=== PATIENT | female | born 1990 | race African-American/Black ===

== ENCOUNTER 2020-02-25 07:52 | Emergency (ER) | payer MEDICAID ==
[~2020-02-25] VITALS: Ht 177.8 cm; Wt 63.5 kg
[2020-02-25 07:52] VITALS: BP 106/71
--- NOTE | 2020-02-25 07:52 | NUR ---
BIBA TO BED 4.
[2020-02-25] MEDS ORDERED: PHENAZOPYRIDINE 100 MG TAB PO ONE (07:55)
--- NOTE | 2020-02-25 07:55 | NUR ---
BIBA C/O DYSURIA & HEMATURIA X4 DAYS. PT STATES SHE HAS ALSO HAD MULTIPLE NEW SEXUAL PARTNERS RECENTLY. HX: PSYCHIATRIC HX. DENIES N/V/D; SKIN IS PINK/WARM/DRY; AAOX4. PT DENIES ANY FEVER, CP, SOB, OR COUGH AT THIS TIME; PATIENT STATES PAIN OF 7/10 AT THIS TIME. PATIENT POSITIONED FOR COMFORT; HOB ELEVATED; BEDRAILS UP X1; BED DOWN. ER MD MADE AWARE OF PT STATUS.
[2020-02-25 09:13] LABS: APPEARANCE,URINE HAZY (CLEAR); BILIRUBIN,URINE NEGATIVE (NEGATIVE); BLOOD, URINE 3+ (NEGATIVE); COLOR,URINE ORANGE (YELLOW); LEUKOCYTE ESTERASE ,URINE 1+ (NEGATIVE); NITRITE, URINE POSITIVE (NEGATIVE); PH,URINE 8.5 (5.0-9.0); UGLUCOSE NEGATIVE (NEGATIVE)
[2020-02-25] MEDS ORDERED: cefTRIAXone 1,000 MG in LIDOCAINE MPF 1% 2.1 ML IM ONE (09:25)
[2020-02-25] MEDS ORDERED: cefTRIAXone 1,000 MG VIAL ONE (09:34)
--- NOTE | 2020-02-25 09:34 | NUR ---
PT RESTING IN BED, NO NEW NEEDS AT THIS TIME
[2020-02-25] MEDS ORDERED: LIDOCAINE MPF 1% 5 ML ONE (09:35)
--- NOTE | 2020-02-25 10:29 | NUR ---
Patient discharged with v/s stable. Written and verbal after care instructions given and explained. Patient alert, oriented and verbalized understanding of instructions. Ambulatory with steady gait. All questions addressed prior to discharge. ID band removed. Patient advised to follow up with PMD. Rx of KEFLEX given. Patient educated on indication of medication including possible reaction and side effects. Opportunity to ask questions provided and answered. HOMELESS RESOURCE PACKET, LUNCH,& BUS PASS PROVIDED,
== END 2020-02-25 10:29 | disposition home or self-care (01) ==
LOC: MED 07:52
DX: N39.0 Urinary tract infection, site not specified (principal); Z98.890 Other specified postprocedural states
CPT/HCPCS: 81001; 81025; 87086; 96372; 99283; J0696; J0713; J2001; 87186